=== PATIENT | male | born 1950 | race Caucasian/White ===

== ENCOUNTER → 2016-12-22 | Outpatient (CLI) | payer OTHER, MEDICARE | END | disposition home or self-care (01) | LOC: PCVCCLINIC 13:10 | PROVIDERS: ATTEND Internal Medicine Cardiovascular Disease | DX: I25.10 Atherosclerotic heart disease of native coronary artery without angina pectoris (principal); I10 Essential (primary) hypertension; I77.89 Other specified disorders of arteries and arterioles; E78.2 Mixed hyperlipidemia; E04.1 Nontoxic single thyroid nodule; Z86.79 Personal history of other diseases of the circulatory system; Z88.1 Allergy status to other antibiotic agents; Z79.899 Other long term (current) drug therapy; Z79.82 Long term (current) use of aspirin; Z95.5 Presence of coronary angioplasty implant and graft | CPT/HCPCS: 80061; 93005; G0463 ==

== ENCOUNTER → 2017-08-06 | Outpatient (CLI) | payer OTHER | END | disposition home or self-care (01) | LOC: PCVCIMAG 13:27 | DX: I25.10 Atherosclerotic heart disease of native coronary artery without angina pectoris (principal); I25.2 Old myocardial infarction; I10 Essential (primary) hypertension; E78.00 Pure hypercholesterolemia, unspecified; Z79.82 Long term (current) use of aspirin; Z79.899 Other long term (current) drug therapy | CPT/HCPCS: 80061; 93005; 93880 ==

== ENCOUNTER → 2018-06-04 | Outpatient (CLI) | payer OTHER ==
--- NOTE | 2018-06-04 16:44 | PCVCIMAG ---
APPROVED REPORT Study performed: 06/04/2018 14:40:37 Exam: Stress Echocardiogram Indication: CAD s/p PCI, ischemic cardimoypathy, HTN Patient Location: Echo lab Stress Nurse: Yojana Hammonds RN Status: routine Ht: 5 ft 7 in HR: 109 bpm BP: 124/82 mmHg Rhythm: Tachycardia, RBBB Procedure The patient underwent an Exercise Stress Test using the Saurav Protocol. Blood pressure, heart rate, and EKG were monitored. An Echocardiogram was performed by vehicle maintenance technician in four stages in quad fashion. At peak stress, four selected images were obtained and placed side by side with resting images for comparison. Stress Test Details Stress Test: Exercise stress testing was performed using a Saurav protocol. HR Resting HR: 109 bpmMax Heart Rate (APMHR): 153 bpm Max HR Achieved: 164 bpmTarget HR (85% APMHR): 130 bpm % of APMHR: 107 Recovery HR: 117 bpm HR response to stress: Normal HR response to stress BP Resting BP: 124/82 mmHg Max BP: 162/76 mmHg Recovery BP: 138/76 mmHg ECG Resting ECG: Sinus tachycardia, RBBB Stress ECG: Sinus Rhythm, RBBB ST Change: Normal Arrhythmia: None Recovery ECG: Sinus Tachycardia Recovery ST Change: Normal Recovery Arrhythmia: None Clinical Reason for Termination: Maximal effort Stress Symptoms: non-limiting chest pain Exercise duration: 9 min 55 sec Highest Stage Achieved: Stage 4: 4.2 mph at 16% grade. Exercise capacity: 13 METs Overall Exercise Capacity for Age: Good Scale: Active Angina Score: Non-Limiting Pre-Stress Echo The resting Echocardiogram showed normal left ventricular contractility with an estimated Ejection Fraction of about 45%. Normal wall motion in all segments on baseline images. Post-Stress Echo The stress Echocardiogram showed normal left ventricular contractility with an estimated Ejection Fraction of about 50-55%. Fixed basal inferior and inferolateral akinesis consistent with patient history. Normal augmentation of wall motion in all other segments on post stress images. Clinical No clinical or ECG evidence for ischemia. Conclusion Clinical Response: Equivocal- non-limiting Exercise Capacity: above average Stress ECG Response: Non-ischemic Stress Echo Images: Non-ischemic The left ventricle is normal in size and wall thickness in both the rest and stress images. Other Information Study Quality: Adequate <Conclusion> The left ventricle is normal in size and wall thickness in both the rest and stress images.
== END | disposition home or self-care (01) ==
LOC: PCVCIMAG 14:30
PROVIDERS: ATTEND Internal Medicine Cardiovascular Disease
DX: I25.10 Atherosclerotic heart disease of native coronary artery without angina pectoris (principal); I10 Essential (primary) hypertension; R07.9 Chest pain, unspecified
CPT/HCPCS: 93325; 93351